=== PATIENT | male | born 1980 | race Two or more races ===

== ENCOUNTER 2018-03-08 13:57 | Emergency (ER) | payer OTHER ==
[~2018-03-08] VITALS: Ht 177.8 cm; Wt 95.3 kg
[2018-03-08] MEDS ORDERED: OSEL75CA PO (18:12)
== END 2018-03-08 18:22 | disposition home or self-care (01) ==
LOC: ER 13:57
DX: J11.1 Influenza due to unidentified influenza virus with other respiratory manifestations (principal); B34.9 Viral infection, unspecified